=== PATIENT | male | born 1960 | race Caucasian/White ===

== ENCOUNTER 2021-09-16 13:05 | Emergency (ER) | payer BC ==
--- OUTSIDE RECORDS SUMMARY | 2021-09-16 13:08 | XMS REPORT | Continuity of Care Document ---
:1960 Author Organization [facility] t Address [address] [place] [address] Care Team Providers Name Role Phone LAZARO Attending Clinician Unavailable Lazaro RIVERA Attending Clinician Payers Payer Name Policy Type Policy Number Effective Date Expiration Date S arlethce [facility] [id number] 2015 00:00:00 Problems Condition Condition Condition Status Onset Resolution Last Treating Co mments Source Name Details Category Date Date Treatment Clinician Date Bicipital Bicipital Diagnosis Active [facility] tendinitis tendinitis [facility] kes - of right of right Memori a shoulder shoulder l [facility] Pain, Pain, Diagnosis Active [facility] shoulder, Jude dena right right l [facility]pat[facility] Clinics Traumatic Traumatic Diagnosis Active [facility] incomplete incomplete Li kes - tear of tear of Memoria right right l rotator rotator Outpati cuff, cuff, ent subsequent subsequent Cl inics encounter encounter Subacromia Subacromia Diagnosis Active [facility] bursitis l bursitis Li kes - of right of right Memori a shoulder shoulder l joint joint Outpati ent Clinics Allergies, Adverse Reactions, Alerts Allergy Allergy Status Severity Reaction(s) Onset Inactive Treating Comm ents Source Name Type Date Date Clinician PENICILL DRUG Active Med Rash 2017-10 [facility] INGREDI 0-09 ity of 00:00: [address] [place] penicill Adverse Active Info Not [facility] Reaction Available [facility] Medications Ordered Filled Start Stop Current Ordering Indication Dosage Frequency Signature Comments Components Source Medication Medication Date Date Medication? Clinician (SIG) Name Name Losartan Losartan Yes Maximiliano not [facility] Potassium Potassium Moss defined [facility]es - [facility] Rosuvastati Rosuvastati Yes Maximiliano not [facility] n Calcium n Calcium Moss defined Li kes - [facility] Metoprolol Metoprolol Yes Maximiliano not [facility] Succinate Succinate Moss defined Li kes - ER ER Memoria l [facility] Fenofibrate Fenofibrate Yes Maximiliano not [facility] Moss defined [facility] Xigduo XR Xigduo XR Yes Maximiliano not [facility] Moss defined [facility] Procedures This patient has no known procedures. Encounters Start End Encounter Admission Attending Care Care Encounter Source Date/Time Date/Time Type Type Clinicians Facility Department ID 2020-05-14 2020-05-14 Outpatient Rafael Noriega [id number] [facility] 08:00:00 08:00:00 t [facility] 2020 2020 Outpatient Samantha ARREOLA [facility] [id number] Univers 16:30:00 16:30:00 ABBIE [id number] [facility] 2020 2020 [facility] [id number] [facility] 16:30:00 16:30:00 ABBIE [facility] 2020-04-01 2020-04-01 Outpatient Rafael Noriega [id number] [facility] 08:00:00 08:00:00 t [facility] 2020-03-23 2020-03-23 Outpatient Rafael Noriega [id number] [address] 22:09:00 22:09:00 t [facility] 2020-03-18 2020-03-18 Outpatient Rafael Noriega [id number] [facility] 10:00:00 10:00:00 t [facility] 2020-03-09 2020-03-09 Outpatient Rafael Noriega [id number] 10:00:00 10:00:00 t [facility] ent Clinics 2020-02-19 2020-02-19 Outpatient R LAZARO [facility] [id number] Univers 16:30:00 16:30:00 ABBIE lesirene [facility] 2020-02-19 2020-02-19 Telemedici Lazaro [facility] [id number] 08:04:20 08:34:20 ne Visit Abbie De La Cruz [id number] [place] [id number] Professio [phone] [facility] 220 [facility] 2020-01-13 2020-01-13 Refill Lazaro [facility] [id number] 00:00:00 00:00:00 Abbie De La Cruz [id number] [place] [id number] Professio [phone] [facility] 220 [facility] 2019-11-11 2019-11-11 Refill Lazaro [facility] [id number] 00:00:00 00:00:00 Abbie De La Cruz [id number] [place] [id number] Professio [phone] [address] Results This patient has no known results.
[2021-09-16 14:24] LABS: Urine Blood Negative (Negative); Urine Glucose 3+ (Negative); Urine Protein Negative (Negative); Urine Specific Gravity 1.015 (1.005-1.030)
[2021-09-16 14:50] LABS: Absolute Lymphocytes (CBC) 3.8 K/uL (0.7-4.9); Basophils % 0.4 % (0-1.3); Hematocrit 33.1 % (39.6-49.0); Lymphocytes % 48.5 % (15.3-44.8); MPV 9.3 fL (7.6-11.3); RBC Red Blood Cell Count 3.99 M/uL (4.33-5.43)
[2021-09-16 15:14] LABS: BUN Blood Urea Nitrogen 21 mg/dL (7-18); Bicarbonate 25 mmol/L (21-32); Glucose Level 184 mg/dL (74-106); Potassium 3.6 mmol/L (3.5-5.1); Sodium Level 141 mmol/L (136-145)
--- NOTE | 2021-09-16 15:25 | EDPHYS ---
Physician Documentation [facility] Name: León Beck Age: 61 yrs Sex: Male : 1960 Arrival Date: 09/16/2021 Time: 13:10 Bed 5 Private MD: ED Physician Warren Cardozo HPI: 09/16 15:22 This 61 yrs old Male presents to ER via Ambulatory with complaints of Back Pain. kb 15:22 The patient presents with pain that is acute, with no known mechanism of injury. The kb symptoms are located in the left low back and left mid back. Onset: The symptoms/episode began/occurred 2 week(s) ago. The pain does not radiate. Associated signs and symptoms: The patient has no apparent associated signs or symptoms. The problem was sustained without known cause. Modifying factors: The patient symptoms are alleviated by nothing, the patient symptoms are aggravated by any movement. Severity of symptoms: At their worst the symptoms were moderate, in the emergency department the symptoms are unchanged. The patient has not experienced similar symptoms in the past. The patient has not recently seen a physician. Pt reports pain to left lower back that started 2 weeks or more ago. Denies injury. Denies abd pain, fever, urinary symptoms, or any other symptoms. States pain is worse with movement. Historical: - Allergies: 13:44 PENICILLINS; vg1 - Home Meds: 13:44 Metformin Oral [Active]; Metoprolol Tartrate Oral [Active]; Tricor Oral [Active]; vg1 "Medication for Prostate" [Active]; - PMHx: 13:44 Hypertensive disorder; Diabetes mellitus; vg1 - Immunization history:: Client reports receiving the 2nd dose of the Covid vaccine. - Social history:: Smoking status: Patient reports the use of cigarette tobacco products, denies chronic smoking, but will smoke occasionally. ROS: 15:21 Constitutional: Negative for fever, chills, and weight loss. kb 15:21 Back: Positive for pain at rest, pain with movement, of the left low back and left mid back. 15:21 All other systems are negative. Exam: 15:21 Constitutional: This is a well developed, well nourished patient who is awake, alert, kb and in no acute distress. Head/Face: Normocephalic, atraumatic. Respiratory: Respirations even and unlabored. No increased work of breathing. Talking in full sentences Abdomen/GI: Soft, non-tender. No distention Back: No spinal tenderness. No costovertebral tenderness. Full range of motion. Skin: Warm, dry with normal turgor. Normal color. MS/ Extremity: Pulses equal, no cyanosis. Neurovascular intact. Full, normal range of motion. Neuro: Awake and alert, GCS 15, oriented to person, place, time, and situation. Moves all extremities. Normal gait. Psych: Awake, alert, with orientation to person, place and time. Behavior, mood, and affect are within normal limits. Vital Signs: 13:41 BP 110 / 73; Pulse 70; Resp 16; Temp 98.1; Pulse Ox 99% ; Weight 72.57 kg; Height 5 ft. vg1 9 in. (175.26 cm); Pain 2/10; 14:32 BP 116 / 67; Pulse 75; Resp 16; Pulse Ox 100% on R/A; kj1 15:28 BP 105 / 69; Pulse 63; Resp 16; Pulse Ox 99% ; bp 13:41 Body Mass Index 23.63 (72.57 kg, 175.26 cm) vg1 MDM: 13:51 Patient medically screened. kb 15:21 Data reviewed: vital signs, nurses notes. Data interpreted: Pulse oximetry: on room air kb is 100 %. Interpretation: normal. Counseling: I had a detailed discussion with the patient and/or guardian regarding: the historical points, exam findings, and any diagnostic results supporting the discharge/admit diagnosis, lab results, the need for outpatient follow up, a family practitioner, to return to the emergency department if symptoms worsen or persist or if there are any questions or concerns that arise at home. 15:21 Data reviewed: old medical records, CT scan abd/pelvis done on 09/06/21. No acute kb findings. 09/16 14:24 Order name: Urine Dipstick-Ancillary; Complete Time: 14:25 EDMS 09/16 14:25 Order name: CBC with Diff; Complete Time: 15:06 kb 09/16 13:51 Order name: Urine Dipstick-Ancillary (obtain specimen); Complete Time: 15:14 kb 09/16 14:25 Order name: Basic Metabolic Panel; Complete Time: 15:20 kb 09/16 14:25 Order name: IV Saline Lock; Complete Time: 14:42 kb Administered Medications: No medications were administered Disposition: 19:51 Co-signature as Attending Physician, Warren Cardozo MD I agree with the assessment and kdr plan of care. Disposition Summary: 09/16/21 15:24 Discharge Ordered Location: Home Condition: Stable kb Diagnosis - Low back pain kb Followup: kb - With: Emergency Department - When: As needed - Reason: Worsening of condition Followup: kb - With: Private Physician - When: 2 - 3 days - Reason: Recheck today's complaints, Continuance of care, Re-evaluation by your physician Discharge Instructions: - Discharge Summary Sheet kb - Musculoskeletal Pain kb Forms: - Medication Reconciliation Form kb - Thank You Letter kb - Antibiotic Education kb - Prescription Opioid Use kb Prescriptions: - Cyclobenzaprine 10 mg Oral Tablet - take 1 tablet by ORAL route every 8 hours As needed; 21 tablet; Refills: 0, kb Product Selection Permitted - Diclofenac Sodium 75 mg Oral tablet,delayed release (DR/EC) - take 1 tablet by ORAL route 2 times per day As needed; 30 tablet; Refills: 0, kb Product Selection Permitted Signatures: Dispatcher [employer] EDMS Tete Baldwin, SQL SSRS DEVELOPER-C SQL SSRS DEVELOPER-Warren Arevalo MD MD kdr Garcia, Victoria RN RN vg1
--- NOTE | 2021-09-16 15:25 | ER ---
Nurse's Notes [facility] Name: León Beck Age: 61 yrs Sex: Male : 1960 Arrival Date: 09/16/2021 Time: 13:10 Bed 5 Private MD: Diagnosis: Low back pain Presentation: 09/16 13:41 Chief complaint: Patient states: lower back pain x 2 weeks. Denies burning upon vg1 urination, ABD pain, or injury to back. States tried to step up into truck today and felt a pinch in back. Coronavirus screen: Vaccine status: Patient reports receiving the 2nd dose of the covid vaccine. Client denies travel out of the [place] in the last 14 days. Ebola Screen: Patient negative for fever greater than or equal to 101.5 degrees Fahrenheit, and additional compatible Ebola Virus Disease symptoms. Initial Sepsis Screen: Does the patient meet any 2 criteria? No. Patient's initial sepsis screen is negative. Does the patient have a suspected source of infection? No. Patient's initial sepsis screen is negative. Risk Assessment: Do you want to hurt yourself or someone else? Patient reports no desire to harm self or others. Onset of symptoms was September 02, 2021. 13:41 Method Of Arrival: Ambulatory vg1 13:41 Acuity: CARMITA 4 vg1 Triage Assessment: 13:44 General: Appears in no apparent distress. uncomfortable, Behavior is calm, cooperative. vg1 Pain: Complains of pain in back Pain currently is 2 out of 10 on a pain scale. at worst was 10 out of 10 on a pain scale. Pain began x 2 weeks. Musculoskeletal: Circulation, motion, and sensation intact. Historical: - Allergies: 13:44 PENICILLINS; vg1 - Home Meds: 13:44 Metformin Oral [Active]; Metoprolol Tartrate Oral [Active]; Tricor Oral [Active]; vg1 "Medication for Prostate" [Active]; - PMHx: 13:44 Hypertensive disorder; Diabetes mellitus; vg1 - Immunization history:: Client reports receiving the 2nd dose of the Covid vaccine. - Social history:: Smoking status: Patient reports the use of cigarette tobacco products, denies chronic smoking, but will smoke occasionally. Screenin:30 Abuse screen: Denies threats or abuse. Denies injuries from another. Nutritional bp screening: No deficits noted. Tuberculosis screening: No symptoms or risk factors identified. Fall Risk None identified. Assessment: 13:45 General: SEE TRIAGE NOTE. bp 14:30 Reassessment: No changes from previously documented assessment. Patient and/or family bp updated on plan of care and expected duration. Pain level reassessed. Neuro: Level of Consciousness is awake, alert, obeys commands, Oriented to Appropriate for age Gait is steady. 15:30 Reassessment: PT D/C HOME AMBULATORY, DX WITH MUSCULOSKELETAL PAIN. bp Vital Signs: 13:41 BP 110 / 73; Pulse 70; Resp 16; Temp 98.1; Pulse Ox 99% ; Weight 72.57 kg; Height 5 ft. vg1 9 in. (175.26 cm); Pain 2/10; 14:32 BP 116 / 67; Pulse 75; Resp 16; Pulse Ox 100% on R/A; kj1 15:28 BP 105 / 69; Pulse 63; Resp 16; Pulse Ox 99% ; bp 13:41 Body Mass Index 23.63 (72.57 kg, 175.26 cm) vg1 ED Course: 13:10 Patient arrived in ED. am2 13:44 Triage completed. vg1 13:44 Arm band placed on. vg1 13:50 Tete Baldwin FNP-C is [facility]. kb 13:50 Warren Cardozo MD is Attending Physician. kb 13:51 Andrea Andrea, CINTHIA is Primary Nurse. bp 14:37 Initial lab(s) drawn, by fl, sent to lab. Inserted saline lock: 22 gauge in right kj1 antecubital area, using aseptic technique. Blood collected. 15:30 Patient has correct armband on for positive identification. Bed in low position. Call bp light in reach. Side rails up X2. 15:30 No provider procedures requiring assistance completed. IV discontinued, intact, bp bleeding controlled, No redness/swelling at site. Pressure dressing applied. Administered Medications: No medications were administered Outcome: 15:24 Discharge ordered by . kb 15:30 Discharged to home ambulatory. bp 15:30 Condition: stable 15:30 Discharge instructions given to patient, Instructed on discharge instructions, follow up and referral plans. medication usage, Demonstrated understanding of instructions, follow-up care, medications, Prescriptions given X 2. 15:38 Patient left the ED. bp Signatures: Tete Baldwin FNP-C AEROSPACE STRESS ENGINEER-Tran Ernst am2 Andrea Andrea, RN RN bp Harper Baldwin kj1 Leisa Garcia, RN RN vg1 Corrections: (The following items were deleted from the chart) 15:31 15:30 Discharge instructions given to patient, Instructed on discharge instructions, bp follow up and referral plans. Demonstrated understanding of instructions, follow-up care, bp
[2021-09-16 16:33] VITALS: TEMP 98.1
[2021-09-16 16:35] VITALS: BP 105/69; O2SAT 99
== END 2021-09-16 15:38 | disposition home or self-care (01) ==
LOC: ER 13:05
DX: M54.50 Low back pain, unspecified (principal); I10 Essential (primary) hypertension; E11.9 Type 2 diabetes mellitus without complications; Z88.0 Allergy status to penicillin
CPT/HCPCS: 36415; 80048; 81003; 85025; 99283